=== PATIENT | male | born 1980 | race Caucasian/White ===

== ENCOUNTER 2016-04-13 14:27 | Emergency (ER) | payer MEDICAID, OTHER ==
--- NOTE | 2016-04-13 17:42 | UC ---
Back Pain HPI - HPI Summary HPI Summary: Pt has chronic back pain since 2010, has only tx with chiropractics. 3 nights ago was sitting on chest-high wall and fell sideways with pants-leg caught on top of wall, so his head and shoulders hit the floor with his legs in the air. Denies any pain or injury to upper body, but since then has had increase in pain in lower back R>L. No saddle anesthesia or trouble with bowel or bladder. - History of Current Complaint Chief Complaint: UCBackPain Stated Complaint: BACK PAIN (FALL) Time Seen by Provider: 04/13/16 17:13 Hx Obtained From: Patient Onset/Duration: Sudden Onset, Lasting Days Timing: Constant Severity Initially: Moderate Severity Currently: Moderate Back Pain: Is Diffuse, Radiates To - R leg Character: Dull, Aching, Spasmodic, Stiffness Alleviating: Rest, Position Associated Signs And Symptoms: Positive: Weakness, Numbness - R glute. Negative : Flank Pain, Bladder Incontinence, Bowel Incontinence - Allergies/Home Medications Allergies/Adverse Reactions: Allergies Allergy/AdvReac Type Severity Reaction Status Date / Time No Known Allergies Allergy Verified 04/13/16 17:20 PMH/Surg Hx/FS Hx/Imm Hx Previously Healthy: Yes - Surgical History Surgical History: None - Family History Known Family History: Positive: Hypertension - Social History Occupation: Unemployed Alcohol Use: Rare Substance Use Type: Marijuana Substance Use Comment - Amount & Last Used: daily Smoking Status (MU): Heavy Every Day Tobacco Smoker Type: Cigarettes Amount Used/How Often: 1 ppd Household Exposure Type: Cigarettes - Immunization History Most Recent Influenza Vaccination: none Review of Systems Constitutional: Negative Skin: Negative Eyes: Negative ENT: Negative Respiratory: Negative Cardiovascular: Negative Gastrointestinal: Negative Genitourinary: Negative Motor: Negative Neurovascular: Negative Musculoskeletal: Arthralgia Neurological: Negative Psychological: Negative All Other Systems Reviewed And Are Negative: Yes Physical Exam Triage Information Reviewed: Yes Appearance: Well-Appearing, Pain Distress - mod with movement Vital Signs: Initial Vital Signs Temp 98.7 F 04/13/16 17:11 Pulse 92 04/13/16 17:11 Resp 17 04/13/16 17:11 BP 120/72 04/13/16 17:11 Pulse Ox 99 04/13/16 17:11 Vital Signs Reviewed: Yes Eye Exam: Normal Eyes: Positive: Conjunctiva Clear ENT Exam: Normal ENT: Positive: Normal ENT inspection, Hearing grossly normal, Pharynx normal, TMs normal Dental Exam: Normal Neck exam: Normal Neck: Positive: Supple, Nontender, No Lymphadenopathy Respiratory Exam: Normal Respiratory: Positive: Chest non-tender, Lungs clear, Normal breath sounds, No respiratory distress, No accessory muscle use Cardiovascular Exam: Normal Cardiovascular: Positive: RRR, No Murmur Musculoskeletal: Positive: Strength Intact, ROM Intact Neurological: Positive: Muscle Tone Normal, Other: - numbness over R buttock and R posterior leg to knee Psychological Exam: Normal Skin Exam: Normal Back Pain Course/Dx - Differential Dx/Diagnosis Provider Diagnoses: low back strain Discharge - Discharge Plan Condition: Stable Disposition: HOME Prescriptions: Naproxen [Naproxen 500 MG TABS] 500 mg PO BID #20 tab Patient Education Materials: Low Back Strain (ED), Core Strengthening Exercises (GEN) Referrals: No Primary Care Phys,NOPCP [Primary Care Provider] - Additional Instructions: Please arrange to see a primary care provider soon so you can discuss more in- depth work-up of your back pain (such as with MRI).
--- NOTE | 2016-04-13 18:09 | RAD ---
INDICATION: Back pain COMPARISON: None TECHNIQUE: Routine PA, lateral, and oblique imaging was performed . FINDINGS: Bones: There are no acute bony findings. There are arthritic changes consisting of minor spurring at L1-L2 and L4-L5 there is mild disc space narrowing at L4-L5 and L5-S1. Alignment: Normal Disc spaces: The remaining disc spaces are well-maintained Soft tissues: There are no soft tissue abnormalities. IMPRESSION: MINOR DEGENERATIVE CHANGES. NO ACUTE FINDINGS.
== END 2016-04-13 18:43 | disposition home or self-care (01) ==
LOC: UCCORT 14:27
DX: S39.012A Strain of muscle, fascia and tendon of lower back, initial encounter (principal); M47.896 Other spondylosis, lumbar region; F17.210 Nicotine dependence, cigarettes, uncomplicated; W13.8XXA Fall from, out of or through other building or structure, initial encounter; Y92.9 Unspecified place or not applicable
CPT/HCPCS: 72110; 99202; G0463